=== PATIENT | female | born 1945 | race Caucasian/White ===

== ENCOUNTER 2018-07-20 09:14 | Emergency (ER) | payer OTHER, SELFPAY ==
[2018-07-20 09:31] VITALS: BP 120/64; PULSE 98; RESP 18; TEMP 36.6; O2SAT 99; BMI 30.2
--- NOTE | 2018-07-20 10:41 | ED.SKABFB ---
HPI - Skin/Abscess/Foreign Bdy General Chief complaint: Skin/Abscess/Foreign Body Stated complaint: right toe pain swelling/ blistered Time Seen by Provider: 07/20/18 09:41 Source: patient Mode of arrival: ambulatory Limitations: no limitations History of Present Illness HPI narrative: Patient states she developed a blister on the dorsal surface of her right great toe about 4 days ago. She states that it has gotten progressively bigger, and that yesterday, she began to notice some bleeding into the blister. She also noticed that she had redness spreading to her foot and leg from the blister, so she went and saw her primary doctor, who put her on Keflex. Patient states she gets bad headaches with sulfa antibiotics, so her doctor told her this was the next best choice for MRSA. The patient states the redness has not spread since yesterday, that the blister is bigger and has turned a dark purple. Patient states she does not feel ?sick? and that other than the 5th foot and lower leg, she is feeling fine. Patient denies being a diabetic. She denies any trauma to the toe that she can think of that would have caused the blister deformed. She has not had any fevers. No other complaints at this time. MD complaint: other (Blister and infection) Onset (ago): day(s) Tetanus up to date: yes Location: R foot Severity: moderate Severity scale (1-10): 6 Quality: burning and stabbing Pain Consistency: constant Relieving factors: none Exacerbating factors: movement Context: other (See above) Associated symptoms: denies other symptoms Treatments prior to arrival: none Related Data Home Medications Medication Instructions Recorded Confirmed Fish Oil 1 cap PO DAILY 07/20/18 07/20/18 Mature Vit 1 tab PO DAILY 07/20/18 07/20/18 Vitamin B-6 1 tab PO DAILY 07/20/18 07/20/18 Vitamin D3 1 cap PO DAILY 07/20/18 07/20/18 amitriptyline 2 tab PO BEDTIME 07/20/18 07/20/18 aspirin 81 mg PO DAILY 07/20/18 07/20/18 calcium carbonate [Calcium 500] 1 tab PO DAILY 07/20/18 07/20/18 calcium citrate 1 tab PO DAILY 07/20/18 07/20/18 cephalexin 2 cap PO BID 07/20/18 07/20/18 gabapentin 1 cap PO BEDTIME 07/20/18 07/20/18 uloaccdy-twwfi-xrneb-CF borate 1 tab PO BID 07/20/18 07/20/18 [[email or web address]] glucosamine-chondroitin 1 tab PO DAILY 07/20/18 07/20/18 lisinopril-hydrochlorothiazide 1 tab PO DAILY 07/20/18 07/20/18 magnesium 1 tab PO DAILY 07/20/18 07/20/18 meclizine 1 - 2 tab PO PRN PRN 07/20/18 07/20/18 methylcellulose (laxative) 1 tab PO DAILY 07/20/18 07/20/18 [Citrucel] naproxen 1 tab PO BID 07/20/18 07/20/18 ondansetron 1 - 2 tab PO PRN PRN 07/20/18 07/20/18 simvastatin 1 tab PO BEDTIME 07/20/18 07/20/18 zinc 1 cap PO DAILY 07/20/18 07/20/18 Previous Rx's Medication Instructions Recorded siqxvxng-myhbvaxsfYt-tkexcckjI 1 applictn TOP BID #28 gram 07/20/18 [Neosporin (djg-wgg-gepcz) 3.5 mg-400 unit-5,000 unit/gram top ointment] Allergies Allergy/AdvReac Type Severity Reaction Status Date / Time amoxicillin Allergy Severe Rash Verified 07/20/18 10:51 ciprofloxacin [From Cipro] Allergy Severe Rash Verified 07/20/18 10:51 Sulfa (Sulfonamide AdvReac Severe Headache Verified 07/20/18 10:51 Antibiotics) Review of Systems Review of Systems All systems reviewed & are unremarkable except as noted in HPI and below Constitutional Denies chills, Denies fever(s), Denies lethargy and Denies weakness Eyes Denies change in vision, Denies eye discharge, Denies irritation and Denies loss of vision ENT Ears, Nose, Mouth, and Throat: Denies change in voice, Denies neck pain and Denies sore throat Cardiovascular Denies chest pain, Denies irregular heart rhythm, Denies lightheadedness, Denies palpitations, Denies dyspnea, Denies dyspnea on exertion and Denies orthopnea Respiratory Denies cough, Denies dyspnea, Denies dyspnea on exertion and Denies wheezing Gastrointestinal Gastrointestinal: Denies abdominal pain, Denies change in bowel habits, Denies diarrhea, Denies nausea and Denies vomiting Genitourinary Denies hematuria, Denies flank pain, Denies urinary incontinence and Denies urinary urgency Musculoskeletal Denies neck pain Integumentary/Breasts Denies pruritus, Denies erythema, Denies rash and Denies wounds Neurologic Denies confusion, Denies loss of vision and Denies weakness Psychiatric Denies anxiety, Denies confusion, Denies depression, Denies homicidal ideation and Denies suicidal ideation Endocrine Denies palpitations Hematologic/Lymphatic Denies easy bruising Allergic/Immunologic Denies wheezing [facility] Medical History Healthy adult (Acute) Surgical History No pertinent past surgical history (Acute) Social History Smoking Status: Never smoker Exam Initial Vital Signs Initial Vital Signs: Vital Signs Temperature 97.9 F 07/20/18 09:31 Pulse Rate 98 H 07/20/18 09:31 Respiratory Rate 18 07/20/18 09:31 Blood Pressure 120/64 07/20/18 09:31 Pulse Oximetry 99 07/20/18 09:31 Const General: cooperative and well developed Nutritional Appearance: well nourished Orientation: alert, awake, oriented x3 and not confused [facility] Head: normocephalic and atraumatic Ears: external ears normal Nose: external nose normal and No nasal discharge Face and sinus: face symmetric and No dry mucous membranes Mouth: oral mucosae normal and moist mucous membranes Eyes General: appearance normal, both eyes and all related structures Eyelids: eyelids normal Conjunctivae: conjunctivae normal Sclera: sclerae normal Pupils: PERRL EOM: EOM intact bilaterally Neck Neck: normal visual inspection, trachea midline, No lymphadenopathy, No midline deformity and No JVD Lymphatic: No lymphedema Chest Chest: normal inspection of the chest Resp Effort & Inspection: normal respiratory effort, able to speak in complete sentences, no respiratory distress and no use of accessory muscles Auscultation: clear to auscultation bilaterally, no rales, no rhonchi and no wheezes Cardio Rate: regular rate Rhythm: regular rhythm Heart Sounds: no click, no gallops, no murmurs and no rubs Pulses: normal peripheral pulses Back/Spine/Pelvis Back: No CVA tenderness Cervical Spine: cervical ROM normal and No pain with cervical ROM Thoracic/Lumbar Spine: thoracic and lumbar spine normal to inspection Skin Other: Patient has a 7 cm by 4 cm purplish bulla on the dorsum medial surface of her right great toe. Patient has associated erythema and moderate edema of the foot and great toe, as well. Erythema spreads superiorly to the anterolateral surface of the lower leg, about alf up. Skin marking is noted, which patient states was placed by her primary care physician yesterday; the erythema does extend beyond this. No fluctuance other than is associated with the blisters self. Neuro General: alert, oriented x3, gait normal and no focal motor deficits Speech: speech normal Extrem General: full ROM, no clubbing, cyanosis or edema, no pedal edema and no calf tenderness Psych Appearance: well kempt Mental Status: mental status grossly normal Attitude: cooperative Thought Content: normal and suicidality Judgment: judgment good Procedures Abscess I/D Site: foot Side (if applicable): right Amount of fluid expressed (mL): 10 Irrigation: Yes Packing used?: none Course Course Narrative: The patient had only been on the Keflex for 1 day, and the erythema had ceased to spread. Although Keflex is not totally ideal coverage of MRSA, given that this patient does not tolerate sulfa well, I felt that Keflex would be reasonable to continue his antibiotics since the patient is very early in her course. I did feel that the bolus should be debrided, as I was concerned that it was acting as a reservoir for infection. Patient agreed to this. The below was incised with scissors after sterile preparation, and a wound culture was taken of the fluid. Skin was then trimmed along the edges and fully removed, and did reveal a copious amount serosanguineous and purulent fluid was. Wound was cleansed and then soaked in a saline Betadine solution. Patient was then dressed with Silvadene and gauze. She has a podiatry appointment tomorrow, and I have discussed with her that I feel that the Keflex may be continued until then, and Podiatry can decide whether this is still a good force to pursue. Patient was noted to have some pus expressible subungually, as the base of her nail was exposed in entirety. I did apply pressure and express the purulent matter in till no further fluid was expressible. We have discussed that Podiatry may decide to remove the patient's nail entirely; however, I do not believe this needs to be done read at this time. Vital Signs - 8 hr 07/20/18 09:31 Temperature 97.9 F Pulse Rate 98 H Respiratory Rate 18 Blood Pressure 120/64 Pulse Oximetry 99 MDM - Skin/Abscess/Foreign Bdy Medical Records Attestation: I reviewed the patient's medical records. Discharge Plan Departure Patient Disposition: Home Clinical Impression: Abscess of skin or subcutaneous tissue, Cellulitis Discharge Date/Time: 07/20/18 12:33 Interventions: ED Discharge Assessment Last Done: 07/20/18 12:33 Instructions: DI for Cellulitis -- Adult, DI for Debridement of a Wound, Infection, or Burn Activity Restrictions/Additional Instructions: Please dress your wound daily with the Neosporin (Rx sent to your pharmacy on record, [facility]) and gauze. Continue your plans to follow up with Podiatry tomorrow. Please continue the Keflex until all the pills are gone. If your redness begins to spread beyond the marked margins, please have the area re-evaluated medically. Prescriptions: New cskbyzvv-hdfluyzafWp-hycdldxxH [Neosporin (gbx-wcy-zawwg)] 3.5mg-400 unit- 5,000 unit/gram ointment 1 applictn TOP BID Qty: 28 RF: 0 No Action lisinopril-hydrochlorothiazide 20-12.5 mg tablet 1 tab PO DAILY RF: 0 simvastatin 40 mg tablet 1 tab PO BEDTIME RF: 0 amitriptyline 25 mg tablet 2 tab PO BEDTIME RF: 0 cephalexin 500 mg capsule 2 cap PO BID RF: 0 gabapentin 300 mg capsule 1 cap PO BEDTIME RF: 0 naproxen 500 mg tablet 1 tab PO BID RF: 0 aspirin 81 mg Tablet,Delayed Release (Dr/Ec) 81 mg PO DAILY RF: 0 calcium carbonate [Calcium 500] 500 mg calcium (1,250 mg) Tablet 1 tab PO DAILY RF: 0 meclizine 25 mg Tablet 1 - 2 tab PO PRN PRN (Reason: Dizziness) RF: 0 methylcellulose (laxative) [Citrucel] 500 mg Tablet 1 tab PO DAILY RF: 0 ondansetron 4 mg Tablet,Disintegrating 1 - 2 tab PO PRN PRN (Reason: Nausea) RF: 0 dsbvlvtb-geogg-tqndd-CF borate [[employer]] 750 mg-100 mg- 1.65 mg-108 mg Tablet 1 tab PO BID RF: 0 glucosamine-chondroitin 500-200 mg Tablet Extended Release 1 tab PO DAILY RF: 0 Fish Oil 1 cap PO DAILY RF: 0 Mature Vit 1 tab PO DAILY RF: 0 Vitamin B-6 10 mg tablet 1 tab PO DAILY RF: 0 Vitamin D3 1 cap PO DAILY RF: 0 calcium citrate 1 tab PO DAILY RF: 0 magnesium 80 mg tablet 1 tab PO DAILY RF: 0 zinc 10 mg capsule 1 cap PO DAILY RF: 0
[2018-07-20 11:00] VITALS: BP 130/68; PULSE 76; RESP 15; O2SAT 100
--- NOTE | 2018-07-20 11:28 | ED_ITS ---
HPI - Skin/Abscess/Foreign Bdy General Chief complaint: Skin/Abscess/Foreign Body Stated complaint: right toe pain swelling/ blistered Time Seen by Provider: 07/20/18 09:41 Source: patient Mode of arrival: ambulatory Limitations: no limitations History of Present Illness HPI narrative: Patient states she developed a blister on the dorsal surface of her right great toe about 4 days ago. She states that it has gotten progressively bigger, and that yesterday, she began to notice some bleeding into the blister. She also noticed that she had redness spreading to her foot and leg from the blister, so she went and saw her primary doctor, who put her on Keflex. Patient states she gets bad headaches with sulfa antibiotics, so her doctor told her this was the next best choice for MRSA. The patient states the redness has not spread since yesterday, that the blister is bigger and has turned a dark purple. Patient states she does not feel ?sick? and that other than the 5th foot and lower leg, she is feeling fine. Patient denies being a diabetic. She denies any trauma to the toe that she can think of that would have caused the blister deformed. She has not had any fevers. No other complaints at this time. MD complaint: other (Blister and infection) Onset (ago): day(s) Tetanus up to date: yes Location: R foot Severity: moderate Severity scale (1-10): 6 Quality: burning and stabbing Pain Consistency: constant Relieving factors: none Exacerbating factors: movement Context: other (See above) Associated symptoms: denies other symptoms Treatments prior to arrival: none Related Data Home Medications Medication Instructions Recorded Confirmed Fish Oil 1 cap PO DAILY 07/20/18 07/20/18 Mature Vit 1 tab PO DAILY 07/20/18 07/20/18 Vitamin B-6 1 tab PO DAILY 07/20/18 07/20/18 Vitamin D3 1 cap PO DAILY 07/20/18 07/20/18 amitriptyline 2 tab PO BEDTIME 07/20/18 07/20/18 aspirin 81 mg PO DAILY 07/20/18 07/20/18 calcium carbonate [Calcium 500] 1 tab PO DAILY 07/20/18 07/20/18 calcium citrate 1 tab PO DAILY 07/20/18 07/20/18 cephalexin 2 cap PO BID 07/20/18 07/20/18 gabapentin 1 cap PO BEDTIME 07/20/18 07/20/18 uhmhxysy-kciwv-iriyf-CF borate 1 tab PO BID 07/20/18 07/20/18 [Move Free [employer]] glucosamine-chondroitin 1 tab PO DAILY 07/20/18 07/20/18 lisinopril-hydrochlorothiazide 1 tab PO DAILY 07/20/18 07/20/18 magnesium 1 tab PO DAILY 07/20/18 07/20/18 meclizine 1 - 2 tab PO PRN PRN 07/20/18 07/20/18 methylcellulose (laxative) 1 tab PO DAILY 07/20/18 07/20/18 [Citrucel] naproxen 1 tab PO BID 07/20/18 07/20/18 ondansetron 1 - 2 tab PO PRN PRN 07/20/18 07/20/18 simvastatin 1 tab PO BEDTIME 07/20/18 07/20/18 zinc 1 cap PO DAILY 07/20/18 07/20/18 Previous Rx's Medication Instructions Recorded qrkhxcau-ogpgbjcoiXs-wwffjafmP 1 applictn TOP BID #28 gram 07/20/18 [Neosporin (lhb-qcs-eoyjc) 3.5 mg-400 unit-5,000 unit/gram top ointment] Allergies Allergy/AdvReac Type Severity Reaction Status Date / Time amoxicillin Allergy Severe Rash Verified 07/20/18 10:51 ciprofloxacin [From Cipro] Allergy Severe Rash Verified 07/20/18 10:51 Sulfa (Sulfonamide AdvReac Severe Headache Verified 07/20/18 10:51 Antibiotics) Review of Systems Review of Systems All systems reviewed & are unremarkable except as noted in HPI and below Constitutional Denies chills, Denies fever(s), Denies lethargy and Denies weakness Eyes Denies change in vision, Denies eye discharge, Denies irritation and Denies loss of vision ENT Ears, Nose, Mouth, and Throat: Denies change in voice, Denies neck pain and Denies sore throat Cardiovascular Denies chest pain, Denies irregular heart rhythm, Denies lightheadedness, Denies palpitations, Denies dyspnea, Denies dyspnea on exertion and Denies orthopnea Respiratory Denies cough, Denies dyspnea, Denies dyspnea on exertion and Denies wheezing Gastrointestinal Gastrointestinal: Denies abdominal pain, Denies change in bowel habits, Denies diarrhea, Denies nausea and Denies vomiting Genitourinary Denies hematuria, Denies flank pain, Denies urinary incontinence and Denies urinary urgency Musculoskeletal Denies neck pain Integumentary/Breasts Denies pruritus, Denies erythema, Denies rash and Denies wounds Neurologic Denies confusion, Denies loss of vision and Denies weakness Psychiatric Denies anxiety, Denies confusion, Denies depression, Denies homicidal ideation and Denies suicidal ideation Endocrine Denies palpitations Hematologic/Lymphatic Denies easy bruising Allergic/Immunologic Denies wheezing [facility] Medical History Healthy adult (Acute) Surgical History No pertinent past surgical history (Acute) Social History Smoking Status: Never smoker Exam Initial Vital Signs Initial Vital Signs: Vital Signs Temperature 97.9 F 07/20/18 09:31 Pulse Rate 98 H 07/20/18 09:31 Respiratory Rate 18 07/20/18 09:31 Blood Pressure 120/64 07/20/18 09:31 Pulse Oximetry 99 07/20/18 09:31 Const General: cooperative and well developed Nutritional Appearance: well nourished Orientation: alert, awake, oriented x3 and not confused [facility] Head: normocephalic and atraumatic Ears: external ears normal Nose: external nose normal and No nasal discharge Face and sinus: face symmetric and No dry mucous membranes Mouth: oral mucosae normal and moist mucous membranes Eyes General: appearance normal, both eyes and all related structures Eyelids: eyelids normal Conjunctivae: conjunctivae normal Sclera: sclerae normal Pupils: PERRL EOM: EOM intact bilaterally Neck Neck: normal visual inspection, trachea midline, No lymphadenopathy, No midline deformity and No JVD Lymphatic: No lymphedema Chest Chest: normal inspection of the chest Resp Effort & Inspection: normal respiratory effort, able to speak in complete sentences, no respiratory distress and no use of accessory muscles Auscultation: clear to auscultation bilaterally, no rales, no rhonchi and no wheezes Cardio Rate: regular rate Rhythm: regular rhythm Heart Sounds: no click, no gallops, no murmurs and no rubs Pulses: normal peripheral pulses Back/Spine/Pelvis Back: No CVA tenderness Cervical Spine: cervical ROM normal and No pain with cervical ROM Thoracic/Lumbar Spine: thoracic and lumbar spine normal to inspection Skin Other: Patient has a 7 cm by 4 cm purplish bulla on the dorsum medial surface of her right great toe. Patient has associated erythema and moderate edema of the foot and great toe, as well. Erythema spreads superiorly to the anterolateral surface of the lower leg, about correction up. Skin marking is noted , which patient states was placed by her primary care physician yesterday; the erythema does extend beyond this. No fluctuance other than is associated with the blisters self. Neuro General: alert, oriented x3, gait normal and no focal motor deficits Speech: speech normal Extrem General: full ROM, no clubbing, cyanosis or edema, no pedal edema and no calf tenderness Psych Appearance: well kempt Mental Status: mental status grossly normal Attitude: cooperative Thought Content: normal and suicidality Judgment: judgment good Procedures Abscess I/D Site: foot Side (if applicable): right Amount of fluid expressed (mL): 10 Irrigation: Yes Packing used?: none Course Course Narrative: The patient had only been on the Keflex for 1 day, and the erythema had ceased to spread. Although Keflex is not totally ideal coverage of MRSA, given that this patient does not tolerate sulfa well, I felt that Keflex would be reasonable to continue his antibiotics since the patient is very early in her course. I did feel that the bolus should be debrided, as I was concerned that it was acting as a reservoir for infection. Patient agreed to this. The below was incised with scissors after sterile preparation, and a wound culture was taken of the fluid. Skin was then trimmed along the edges and fully removed, and did reveal a copious amount serosanguineous and purulent fluid was. Wound was cleansed and then soaked in a saline Betadine solution. Patient was then dressed with Silvadene and gauze. She has a podiatry appointment tomorrow, and I have discussed with her that I feel that the Keflex may be continued until then, and Podiatry can decide whether this is still a good force to pursue. Patient was noted to have some pus expressible subungually, as the base of her nail was exposed in entirety. I did apply pressure and express the purulent matter in till no further fluid was expressible. We have discussed that Podiatry may decide to remove the patient' s nail entirely; however, I do not believe this needs to be done read at this time. Vital Signs - 8 hr 07/20/18 09:31 Temperature 97.9 F Pulse Rate 98 H Respiratory Rate 18 Blood Pressure 120/64 Pulse Oximetry 99 MDM - Skin/Abscess/Foreign Bdy Medical Records Attestation: I reviewed the patient's medical records. Discharge Plan Departure Patient Disposition: Home Clinical Impression: Abscess of skin or subcutaneous tissue, Cellulitis Discharge Date/Time: 07/20/18 12:33 Interventions: ED Discharge Assessment Last Done: 07/20/18 12:33 Instructions: DI for Cellulitis -- Adult, DI for Debridement of a Wound, Infection, or Burn Activity Restrictions/Additional Instructions: Please dress your wound daily with the Neosporin (Rx sent to your pharmacy on record, [facility]) and gauze. Continue your plans to follow up with Podiatry tomorrow. Please continue the Keflex until all the pills are gone. If your redness begins to spread beyond the marked margins, please have the area re- evaluated medically. Prescriptions: New khjyoope-aovqutcpyOw-qgocomnsY [Neosporin (guo-roc-dxqpx)] 3.5mg-400 unit- 5, 000 unit/gram ointment 1 applictn TOP BID Qty: 28 RF: 0 No Action lisinopril-hydrochlorothiazide 20-12.5 mg tablet 1 tab PO DAILY RF: 0 simvastatin 40 mg tablet 1 tab PO BEDTIME RF: 0 amitriptyline 25 mg tablet 2 tab PO BEDTIME RF: 0 cephalexin 500 mg capsule 2 cap PO BID RF: 0 gabapentin 300 mg capsule 1 cap PO BEDTIME RF: 0 naproxen 500 mg tablet 1 tab PO BID RF: 0 aspirin 81 mg Tablet,Delayed Release (Dr/Ec) 81 mg PO DAILY RF: 0 calcium carbonate [Calcium 500] 500 mg calcium (1,250 mg) Tablet 1 tab PO DAILY RF: 0 meclizine 25 mg Tablet 1 - 2 tab PO PRN PRN (Reason: Dizziness) RF: 0 methylcellulose (laxative) [Citrucel] 500 mg Tablet 1 tab PO DAILY RF: 0 ondansetron 4 mg Tablet,Disintegrating 1 - 2 tab PO PRN PRN (Reason: Nausea) RF: 0 eohvfhcb-kzene-oqoxa-CF borate [[employer]] 750 mg-100 mg- 1.65 mg -108 mg Tablet 1 tab PO BID RF: 0 glucosamine-chondroitin 500-200 mg Tablet Extended Release 1 tab PO DAILY RF: 0 Fish Oil 1 cap PO DAILY RF: 0 Mature Vit 1 tab PO DAILY RF: 0 Vitamin B-6 10 mg tablet 1 tab PO DAILY RF: 0 Vitamin D3 1 cap PO DAILY RF: 0 calcium citrate 1 tab PO DAILY RF: 0 magnesium 80 mg tablet 1 tab PO DAILY RF: 0 zinc 10 mg capsule 1 cap PO DAILY RF: 0
[2018-07-20 11:30] VITALS: BP 130/68; PULSE 75; RESP 14; O2SAT 98
[2018-07-20 12:02] VITALS: BP 115/57; PULSE 74; RESP 15; O2SAT 99
== END 2018-07-20 12:33 | disposition home or self-care (01) ==
PROVIDERS: Emergency Provider Emergency Medicine
DX: L02.611 Cutaneous abscess of right foot (principal); L03.031 Cellulitis of right toe
CPT/HCPCS: 10060; 87070; 87077; 87147; 87186; 87205; 99283

== ENCOUNTER → 2018-09-09 11:28 | Outpatient (CLI) | payer OTHER, SELFPAY ==
--- NOTE | 2018-09-09 | DI.MG.S_ITS ---
BILATERAL DIGITAL SCREENING MAMMOGRAM 3D/2D WITH CAD: 09/09/2018 CLINICAL: Routine screening. Family history of breast cancer. Comparison is made to exams dated: 06/24/2016 mammogram, 01/04/2014 mammogram, and 01/18/2014 mammogram - [facility]. There are scattered fibroglandular elements in both breasts. Current study was also evaluated with a Computer Aided Detection (CAD) system. No significant masses, calcifications, or other findings are seen in either breast. There has been no significant interval change. IMPRESSION: NEGATIVE There is no mammographic evidence of malignancy. A 1 year screening mammogram is recommended. This exam was interpreted at Station ID: [id number]. NOTE: For mammograms, a report in lay terms will be sent to the patient. Approximately 15% of breast malignancies will not be visualized mammographically. In the management of a palpable breast mass, a negative mammogram must not discourage biopsy of a clinically suspicious lesion. Electronically Signed By: Dixie العلي/evie:09/09/2018 12:58:34 letter sent: Normal Exam ACR BI-RADS Category 1: Negative [id number]
== END ==
PROVIDERS: PCP Family Medicine; Visit Provider Family Medicine
DX: Z12.31 Encounter for screening mammogram for malignant neoplasm of breast (principal)
CPT/HCPCS: 77063; 77067

== ENCOUNTER → 2018-11-04 10:19 | Outpatient (CLI) | payer OTHER, SELFPAY ==
--- NOTE | 2018-11-04 | DI.RAD.S_ITS ---
PROCEDURE: XR FOOT LT MIN 3V INDICATIONS: Pain TECHNIQUE: 3 views of the foot were acquired. COMPARISON: [facility], CR, XR FOOT RT MIN 3V, 11/04/2018, 10:22. FINDINGS: Bones: No fractures or dislocations. No suspicious bony lesions. Soft tissues: No tibiotalar joint effusion. Achilles tendon appears normal. IMPRESSION: Source of pain is not seen. Dictated by: Kashmir Epstein M.D. on 11/04/2018 at 12:57 Approved by: Kashmir Epstein M.D. on 11/04/2018 at 12:58
--- NOTE | 2018-11-04 10:21 | DI.RAD.S_ITS ---
PROCEDURE: XR FOOT RT MIN 3V INDICATIONS: Pain. TECHNIQUE: 3 views of the foot were acquired. COMPARISON: None. FINDINGS: Bones: No fractures or dislocations. No suspicious bony lesions. Soft tissues: No tibiotalar joint effusion. Achilles tendon appears normal. IMPRESSION: No trauma found. Source of pain is not seen. Dictated by: Kashmir Epstein M.D. on 11/04/2018 at 12:56 Approved by: Kashmir Epstein M.D. on 11/04/2018 at 12:57
== END ==
PROVIDERS: PCP Family Medicine; Visit Provider Physical Medicine & Rehabilitation
DX: M79.671 Pain in right foot (principal); M79.672 Pain in left foot
CPT/HCPCS: 73630

== ENCOUNTER → 2020-03-18 13:15 | Outpatient (CLI) | payer OTHER, SELFPAY ==
--- NOTE | 2020-03-18 14:05 | DI.RAD.S_ITS ---
PROCEDURE: XR CERVICAL SPINE 4V OR 5V INDICATIONS: neck pain TECHNIQUE: 4 views of the cervical spine acquired. COMPARISON: None. FINDINGS: Bones: No fractures or dislocations to the T1 level. Straightening of the normal lordotic curvature. Severe narrowing of the C5-C6 disc space. Moderate narrowing of the C6-C7 and C7-T1 disc space. Chronic ossicle projects adjacent to the C7 spinous process. Lateral curvature of the spine also noted partially visualized. On the right, there is mild bony foraminal narrowing at C3-C4. On the left, moderate bony foraminal narrowing seen at C5-C6 C6-C7 and C7-T1. Soft tissues: No prevertebral soft tissue swelling. IMPRESSION: Cervical spondylosis most pronounced at C5-C6, C6-C7 and C7-T1 Facet arthropathy Bilateral bony foraminal stenoses as above Dictated by: Naman Holguin M.D. on 03/18/2020 at 15:31 Approved by: Naman Holguin M.D. on 03/18/2020 at 15:34
== END ==
PROVIDERS: PCP Family Medicine; Referring Provider Physical Medicine & Rehabilitation; Visit Provider Physical Medicine & Rehabilitation
DX: M54.2 Cervicalgia (principal); M47.812 Spondylosis without myelopathy or radiculopathy, cervical region; M47.813 Spondylosis without myelopathy or radiculopathy, cervicothoracic region; M48.02 Spinal stenosis, cervical region
CPT/HCPCS: 72050

== ENCOUNTER → 2020-04-27 11:16 | Outpatient (CLI) | payer OTHER, SELFPAY ==
[2020-04-29 11:06] LABS: COVID19 Sendout Not Detected (Not Detect)
== END ==
PROVIDERS: PCP Family Medicine; Visit Provider Physician Assistant
DX: Z01.812 Encounter for preprocedural laboratory examination (principal)
CPT/HCPCS: 87635

== ENCOUNTER 2020-04-30 09:04 | Outpatient (CLI) | payer OTHER, SELFPAY ==
[2020-04-30] VITALS (8 sets, daily range): BP systolic 123–143; BP diastolic 74–90; PULSE 76–80; RESP 15–74; TEMP 36.2; O2SAT 94–99
--- NOTE | 2020-04-30 09:05 | DI.RAD.S_ITS ---
PROCEDURE: PAIN C/T INTERLAMINAR INJECT INDICATIONS: CERVICAL RADICULOPATHY COMPARISON: None. FINDINGS: Fluoroscopic spot filming was performed to verify placement of spinal needles at the C6-C7 level(s), as labeled on the films. Appropriate location(s) of the needle tip(s) was confirmed by injection of iodinated contrast. IMPRESSION: Fluoroscopy guidance for pain management. Dictated by: Derik Burch M.D. on 04/30/2020 at 11:19 Approved by: Derik Burch M.D. on 04/30/2020 at 11:20
[2020-04-30] MEDS: fentaNYL 100 MCG/2 ML INJ 50 MCG IV (10:03)
[2020-04-30] MEDS: MIDAZOLAM 5 MG/5 ML VIAL IV (10:03)
[2020-04-30] MEDS: DEXAMETHASONE 10 MG/ML VIAL 20 MG INJ (10:07)
[2020-04-30] MEDS: BUPIVACAINE 0.25% (PF) VIAL 2 ML INJ (10:07)
[2020-04-30] MEDS: IOPAMIDOL 15 ML VIAL 3 ML INJ (10:07)
--- NOTE | 2020-04-30 10:25 | P.PCN_ITS ---
Date/Time/Diagnoses Date of procedure: 04/30/20 Time of procedure: 10:25 Pre-procedure diagnosis: 1. CERVICAL STENOSIS, 2. CERVICAL HNP WITH UPPER EXTREMITY RADICULAR FEATURES, Post-procedure diagnosis: same Procedure Notes Procedure: 1. FLUORSCOPICALLY GUIDED CONTRAST CONTROLLED INTERLAMINAR EPIDURAL STEROID INJECTION - C6/7 TL EUGENIA Indications: Jens is referred by Dr. De Guzman for treatment of Cervical HNP with Upper Extremity Paresthesias. Physician: Gregory Palmer Total Fluoroscopy time (seconds): 12 Total sedation minutes: 24 Complications: none Procedure in detail & Post-procedure care: FINDINGS Cervical Stenosis due to disc deterioration and nerve root irritation and nerve root irritation DESCRIPTION OF PROCEDURE Fluoroscopically guided, contrast-controlled C6/7 translaminar epidural steroid injection with conscious sedation. Following review of allergy and review of potential side effects and complications, including, but not necessarily limited to, infection, allergic reaction, local tissue breakdown, temporary as well as permanent nerve injury, stroke, paralysis, and possible , the patient indicated that patient understood and agreed to proceed. An informed consent document was signed by the patient, witnessed by a nurse, and placed in the patient's chart. Additionally, other treatment options including modalities, medications, and physical therapy were reviewed with the patient. After review of previous anaesthesic history and IV conscious sedation the patient was deemed safe to proceed with today?s procedure with IV conscious sed ation as ASA class II designation. Safety time-out was performed to confirm patient ID, procedure to be performed and site of procedure. IV sedation was accomplished with a combination of 2mg of Versed and 50mcg of Fentanyl administered by the RN after DO order, titrated to patient comfort during the course of the procedure while the patient remained responsive to all verbal commands. In the prone position, following sterile prep and drape of the cervical region, the C6/7 translaminar space was identified fluoroscopically. The skin was anesthetized via a 25-gauge 1.5-inch needle with 1% lidocaine solution. At this point, a 25-gauge, 2.5-inch short bevel spinal needle was atraumatically introduced and advanced under fluoroscopic guidance into epidural space at the C6/7 translaminar space. Depth was confirmed on lateral view. Radiological data, including multiple fluoroscopic views of the cervical spine, reveal a spinal needle at the C6/7 translaminar space. Lateral views then show placement of the needle in the epidural space. Subsequent views show contrast material flowing superiorly and inferiorly in the epidural space. DSA fluoroscopy with live contrast injection, once again, confirmed no vascular or intrathecal uptake. At this point, using loss of resistance technique with saline and air, the epidural space was entered. Following negative aspiration, injection of approximately 1.5cc of Isovue-200 with live fluoroscopy in the AP view confirmed epidural flow in the epidural space without vascular or intrathecal uptake observed. Subsequently, a test dose of 1cc of 0.25% marcaine solution was injected and patient was observed for two minutes without signs or symptoms of complications, including abdominal pain, shortness of breath, bilateral upper or lower extremity weakness, nausea and vomiting, prior to steroid injection. At this point, 3cc or 30mg of dexamethasone was then injected without incident. The patient tolerated the procedure well without signs or symptoms of complications prior to being transferred to the recovery area for further monitoring, The patient was then transferred to the recovery area where they were observed for an appropriate period of time after the injection. The patient reported a VAS score of 6 prior to the procedure and a post-procedure VAS of 0. POST OP INSTRUCTIONS The patient was provided a Pain Log to continue to record their response to the target-specific procedure prior to follow-up visit with the referring provider. Additionally, specific post-injection care instructions and a contact number to our office were provided if concerns arise regarding possible complications associated with the procedure are suspected.
--- NOTE | 2020-04-30 15:20 | PC.NURSE ---
VSS, reviewed green pain log and post injection instructions prior to injection, Has no questions or concerns on d/c.
--- NOTE | 2020-04-30 15:42 | PC.NURSE ---
Pt tolerated procedure well. Vitals stable upon transfer to post procedure room with report given to FLAQUITO Angelo. IV Fentanyl and Versed given by Liliane Coy RN. All other meds administered by Dr. Palmer
== END 2020-04-30 10:43 | disposition home or self-care (01) ==
LOC: RAD 09:04
PROVIDERS: PCP Family Medicine; Referring Provider Physical Medicine & Rehabilitation; Visit Provider Physical Medicine & Rehabilitation
DX: M48.02 Spinal stenosis, cervical region (principal); M50.123 Cervical disc disorder at C6-C7 level with radiculopathy
CPT/HCPCS: 62321; 99152; J1100; J2250; J3010

== ENCOUNTER 2020-07-25 08:44 | Outpatient (CLI) | payer OTHER, SELFPAY | END 2020-07-25 15:41 | disposition home or self-care (01) | LOC: PHYS 08:45 | PROVIDERS: PCP Family Medicine; Referring Provider Physical Medicine & Rehabilitation; Visit Provider Physical Medicine & Rehabilitation | DX: M54.12 Radiculopathy, cervical region (principal); G62.9 Polyneuropathy, unspecified | CPT/HCPCS: 95886; 95909 ==

== ENCOUNTER → 2020-08-24 13:32 | Outpatient (CLI) | payer OTHER, SELFPAY ==
--- NOTE | 2020-08-24 14:01 | DI.MG.S_ITS ---
Patient Name: BISHOP PRITCHARD date: 1945 Sex: F Attending Physician: Gege Indications: Date: 08/24/2020 13:49 At the request of: WADE ARECHIGA Procedure: MM screening mammo BI BILATERAL DIGITAL SCREENING MAMMOGRAM 3D/2D WITH CAD: 08/24/2020 CLINICAL: Routine screening. Family history of breast cancer. Comparison is made to exams dated: 09/09/2018 mammogram - [facility], 06/24/2016 mammogram, and 01/04/2014 mammogram - [facility]. There are scattered fibroglandular elements in both breasts. Current study was also evaluated with a Computer Aided Detection (CAD) system. No significant masses, calcifications, or other findings are seen in either breast. There has been no significant interval change. IMPRESSION: NEGATIVE There is no mammographic evidence of malignancy. A 1 year screening mammogram is recommended. This exam was interpreted at Station ID: [id number]. NOTE: For mammograms, a report in lay terms will be sent to the patient. Approximately 15% of breast malignancies will not be visualized mammographically. In the management of a palpable breast mass, a negative mammogram must not discourage biopsy of a clinically suspicious lesion. Electronically Signed By: Parag morelos/evie:08/26/2020 08:02:08 letter sent: Normal Exam ACR BI-RADS Category 1: Negative [id number]
== END ==
PROVIDERS: PCP Family Medicine; Referring Provider Family Medicine; Visit Provider Family Medicine
DX: Z12.31 Encounter for screening mammogram for malignant neoplasm of breast (principal)
CPT/HCPCS: 77063; 77067

== ENCOUNTER → 2020-08-27 10:41 | Outpatient (CLI) | payer OTHER, SELFPAY ==
--- NOTE | 2020-08-27 11:51 | DI.CT.S_ITS ---
PROCEDURE: CT CERVICAL SPINE WO CON INDICATIONS: Spinal stenosis, cervical region TECHNIQUE: Noncontrast 3 mm thick sections acquired from the skull base to the T4 level. Sagittal and coronal reformats were then constructed. For radiation dose reduction, the following was used: automated exposure control, adjustment of mA and/or kV according to patient size. COMPARISON: [facility], XA, PAIN C/T INTERLAMINAR INJECT, 04/30/2020, 9:07. [facility], CR, XR CERVICAL SPINE 4V OR 5V, 03/18/2020, 13:57. [facility], MR, MR CERVICAL SPINE WITHOUT CONTRAST, 09/07/2019, 16:00. FINDINGS: Image quality: Excellent. Bones: No fractures or dislocations. Visualized superior ribs are intact. There is reversal of the normal cervical lordosis, with the apex seen at the C5 level. There is minimal retrolisthesis seen at C5-C6. On coronal images, levoconvex upper thoracic scoliosis can be seen. This Mild to moderate disc space narrowing is seen at C4-C5, with moderate to severe disc space narrowing at C5-C6, C6-C7, and C7-T1. Endplate irregularity and sclerosis are seen, which are worst at C5-C6. Posteriorly directed endplate osteophytes are seen, which are worst at C5-C6 and C6-C7. Focal degenerative change can also be seen involving the C1-C2 interface anteriorly. At C5-C6 there is moderate central canal narrowing and at least moderate bilateral neural foraminal narrowing. At C6-C7, there is at least moderate central canal narrowing, with at least moderate bilateral neural foraminal narrowing. Soft tissues: Prevertebral soft tissues are normal in thickness. No paravertebral hematomas. No apical pneumothoraces. IMPRESSION: Cervical spine degenerative changes are seen, which are most prominent inferiorly. Reversal of the normal cervical lordosis is seen. This is commonly observed in patients with muscular spasm. Levoconvex upper thoracic scoliosis noted. Dictated by: Bobo Romero M.D. on 08/27/2020 at 12:47 Approved by: Bobo Romero M.D. on 08/27/2020 at 12:50
== END ==
PROVIDERS: PCP Family Medicine; Referring Provider Neurological Surgery; Visit Provider Neurological Surgery
DX: M48.02 Spinal stenosis, cervical region (principal); M47.812 Spondylosis without myelopathy or radiculopathy, cervical region; M41.84 Other forms of scoliosis, thoracic region
CPT/HCPCS: 72125

== ENCOUNTER → 2020-09-10 13:06 | Outpatient (CLI) | payer OTHER, SELFPAY ==
[2020-09-10 15:22] LABS: COVID19 -Nasal RAPID Negative (Negative)
== END ==
PROVIDERS: PCP Family Medicine; Visit Provider Physical Medicine & Rehabilitation
DX: Z01.812 Encounter for preprocedural laboratory examination (principal); Z20.828 Contact with and (suspected) exposure to other viral communicable diseases
CPT/HCPCS: 87635; C9803

== ENCOUNTER 2020-09-12 06:57 | Outpatient (CLI) | payer OTHER, SELFPAY ==
[2020-09-12] VITALS (9 sets, daily range): BP systolic 103–160; BP diastolic 65–86; PULSE 71–79; RESP 12–23; TEMP 36; O2SAT 93–98
--- NOTE | 2020-09-12 07:01 | DI.RAD.S_ITS ---
PROCEDURE: PAIN C/T INTERLAMINAR INJECT INDICATIONS: SPONDYLOSIS COMPARISON: [facility], , PAIN C/T INTERLAMINAR INJECT, 04/30/2020, 9:07. FINDINGS: Fluoroscopic spot filming was performed to verify placement of a spinal needle at the T1-T2 level, as labeled on the films. Appropriate location of the needle tip was confirmed by injection of iodinated contrast. IMPRESSION: Intraprocedural examination within normal limits. Dictated by: Bobo Romero M.D. on 09/12/2020 at 8:43 Approved by: Bobo Romero M.D. on 09/12/2020 at 8:43
[2020-09-12] MEDS: MIDAZOLAM 5 MG/5 ML VIAL IV (08:00)
[2020-09-12] MEDS: IOPAMIDOL 15 ML VIAL 3 ML INJ (08:09)
[2020-09-12] MEDS: BUPIVACAINE 0.25% (PF) VIAL 2 ML INJ (08:09)
[2020-09-12] MEDS: DEXAMETHASONE 10 MG/ML VIAL 30 MG INJ (08:09)
--- NOTE | 2020-09-12 08:13 | PM.PROC.IR.1 ---
Date/Time/Diagnoses Date of procedure: 09/12/20 Time of procedure: 08:13 Pre-procedure diagnosis: Thoracic stenosis with HNP Post-procedure diagnosis: same Procedure Notes Procedure: Fluoroscopic guided, contrast controlled T1/2 translaminar epidural steroid injection with conscious sedation. Indications: Jens is referred by Dr. De Guzman for treatment of thoracic DDD/DJD with radiculopathy Physician: Gregory Palmer Total Fluoroscopy time (seconds): 20 Total sedation minutes: 9 Complications: none Procedure in detail & Post-procedure care: DESCRIPTION OF PROCEDURE Fluoroscopic guided, contrast controlled T1/2 translaminar epidural steroid injection with conscious sedation. Following review of allergy review potential side effects and complications, including, but not necessarily limited to, infection, allergic reaction, local tissue breakdown, temporary as well as permanent nerve injury, stroke, paralysis and possible , the patient indicated that they understood and agreed to proceed. An informed consent document was signed by the patient, witnessed by the nurse, and placed in the patient's chart. Additionally other treatment options including modalities, medications and physical therapy were reviewed with the patient. After review of previous anaesthesic history and IV conscious sedation the patient was deemed safe to proceed with today's procedure with IV conscious sedation as ASA class II designation. Safety time-out was performed to confirm patient ID, procedure to be performed and site of procedure. IV sedation was accomplished with a combination of 3mg of Versed administered by the RN after DO order, titrated to patient comfort during the course of the procedure while the patient remained responsive to all verbal commands In the prone position, following sterile prep and drape of the thoracic region the T1/2 translaminar space was identified fluoroscopically. The skin was anesthetized via 25 gauge 1.5inch needle with 1% lidocaine solution. At this point a 22gauge epidural needle was atraumatically introduced and advanced under fluoroscopic guidance into the region of the T1/2 translaminar space depth was confirmed on lateral view. Radiographic data, including multiple fluoroscopic views of the thoracic spine, reveals spinal needle at the T1/2 translaminar space. Lateral views then showed the placement of the needle in the epidural space. Subsequent view show contrast material flowing superiorly and inferiorly in the epidural space. No vascular or intrathecal uptake is observed. At this point using loss of resistance technique with saline and the epidural space was entered. This was confirmed followed negative aspiration and injection of approximately 1.5cc of Isovue 200 showed excellent epidural flow without vascular or intrathecal uptake. At this point, 1 cc of 1% lidocaine solution was admitted as a test dose and the patient was observed for an appropriate period of time without signs or symptoms of complications, including abdominal pain, shortness of breath, bilateral upper and lower extremity weakness, nausea and vomiting, prior to steroid injection. Subsequently, 3cc or 30mg of dexamethasone was then injected without incident. The patient tolerated the procedure well without signs of complications and subsequently was transferred to the recovery room for further monitoring. The patient was then transferred to the recovery area with their observed for an appropriate time after the injection. Patient reported a VAS score of 7 prior to the procedure and post-procedure VAS of 2.
== END 2020-09-12 09:12 | disposition home or self-care (01) ==
LOC: RAD 06:58
PROVIDERS: PCP Family Medicine; Referring Provider Family Medicine; Visit Provider Physical Medicine & Rehabilitation
DX: M48.04 Spinal stenosis, thoracic region (principal); M51.14 Intervertebral disc disorders with radiculopathy, thoracic region; M47.24 Other spondylosis with radiculopathy, thoracic region
CPT/HCPCS: 62321; J1100; J2250; J3010

== ENCOUNTER → 2020-10-17 11:54 | Outpatient (CLI) | payer OTHER, SELFPAY ==
--- NOTE | 2020-10-17 11:56 | DI.RAD.S_ITS ---
PROCEDURE: XR SHOULDER RT MIN 2V INDICATIONS: Cuff tear TECHNIQUE: 3 views of the shoulder were acquired. COMPARISON: None. FINDINGS: Bones: No fractures or dislocations. Truncation of distal clavicle with widening of the acromioclavicular joint. There is superior migration of the humeral head. Severe glenohumeral joint space narrowing with periarticular osteophyte formation. No suspicious bony lesions. Visualized ribs appear intact. Soft tissues: No suspicious soft tissue calcifications. IMPRESSION: 1. Truncation of the distal clavicle with widening of the acromioclavicular joint likely postsurgical. Correlate clinically. 2. Superior migration of the humeral head consistent with rotator cuff pathology and/or muscle atrophy. If indicated MRI could be performed to further evaluate the soft tissues. 3. Severe glenohumeral joint degeneration. Dictated by: Andrey COTTON Interpreted: Kashmir Epstein MD on 10/17/2020 at 14:32 Approved by: Kashmir Epstein M.D. on 10/17/2020 at 16:17
--- NOTE | 2020-10-17 11:56 | DI.RAD.S_ITS ---
PROCEDURE: XR SHOULDER LT MIN 2V INDICATIONS: Cuff tear TECHNIQUE: 3 views of the shoulder were acquired. COMPARISON: None. FINDINGS: Bones: No fractures or dislocations. Truncation of the distal clavicle with widening of the acromioclavicular joint. Severe glenohumeral joint narrowing with periarticular osteophyte formation superior migration of the humeral head. No suspicious bony lesions. Visualized ribs appear intact. Soft tissues: Calcification involving the rotator cuff. IMPRESSION: Superior migration of the humeral head consistent with rotator cuff pathology and/or muscle atrophy. If indicated MRI could be performed to further evaluate the soft tissues. Truncation of the distal clavicle with widening of the acromioclavicular joint likely postsurgical. Correlate Clinically. Severe glenohumeral joint degeneration. Calcific tendinitis of the rotator cuff. Dictated by: Andrey LARA Interpreted: Kashmir Epstein MD on 10/17/2020 at 14:33 Approved by: Kashmir Epstein M.D. on 10/17/2020 at 16:18
== END ==
PROVIDERS: PCP Family Medicine; Referring Provider Physical Medicine & Rehabilitation; Visit Provider Physical Medicine & Rehabilitation
DX: M75.100 Unspecified rotator cuff tear or rupture of unspecified shoulder, not specified as traumatic; M19.011 Primary osteoarthritis, right shoulder; M19.012 Primary osteoarthritis, left shoulder; M75.32 Calcific tendinitis of left shoulder
CPT/HCPCS: 73030

== ENCOUNTER → 2020-11-08 15:37 | Outpatient (CLI) | payer MEDICARE, SELFPAY ==
[2020-11-08] MEDS: COVID-19 VACC #1, MRNA(MOD) 100 MCG/0.5 ML VIAL IM (15:46)
== END ==
PROVIDERS: PCP Family Medicine; Visit Provider Internal Medicine
DX: Z23 Encounter for immunization (principal)
CPT/HCPCS: 0011A; 91301

== ENCOUNTER → 2020-12-05 12:09 | Outpatient (CLI) | payer MEDICARE, SELFPAY ==
[2020-12-05] MEDS: COVID-19 VACC #2, MRNA(MOD) 100 MCG/0.5 ML VIAL IM (12:16)
== END ==
PROVIDERS: PCP Family Medicine; Visit Provider Internal Medicine
DX: Z23 Encounter for immunization (principal)
CPT/HCPCS: 0012A; 91301

== ENCOUNTER → 2021-01-04 08:27 | Outpatient (CLI) | payer OTHER, SELFPAY ==
--- NOTE | 2021-01-04 08:30 | DI.MRI.S_ITS ---
PROCEDURE: MR SHOULDER RT WO CON INDICATIONS: Pain in right shoulder TECHNIQUE: Noncontrast oblique coronal T2 fast spin echo with fat saturation, oblique sagittal T1 spin echo and T2 fast spin echo with fat saturation, axial T1 spin echo and T2 fast spin echo with fat saturation through the shoulder. COMPARISON: [facility], CR, XR SHOULDER 2+ VIEWS BILATERAL, 12/26/2020, 14:24. FINDINGS: Image quality: Excellent. Rotator cuff: Full-thickness tearing of the mid and posterior supraspinatus tendon at the humeral insertion site extending to the musculotendinous junction is present. There are a few intact fibers of anterior supraspinatus tendon remaining. There is mild supraspinatus atrophy. There is mild diffuse T2 signal elevation within the infraspinatus tendon at the humeral insertion site extending to the musculotendinous junction, indicating tendinopathy. Superimposed low-grade partial-thickness intrasubstance tearing of the anterior, mid, and posterior infraspinatus tendon, at the humeral insertion site, extending to the musculotendinous junction. Teres minor tendons are intact. There is diffuse low-grade partial-thickness articular surface tearing of the mid and inferior aspect of the subscapularis tendon at the humeral insertion site. Bones and bursae: No bone marrow contusions or fractures. Multiple subchondral cysts within the glenoid. Periarticular osteophyte formation at the glenohumeral joint. Status post resection at the acromioclavicular joint. The acromion demonstrates conventional anatomy, without an os acromiale. No pathologic subacromial-subdeltoid or subcoracoid bursal fluid is present. Capsule and soft tissues: Moderate glenohumeral joint effusion. Multiple small intra-articular loose bodies measuring less than 5 mm diameter. Labrum demonstrates diffuse degenerative tearing The long head of the biceps tendon demonstrates normal location and high-grade tearing The rotator interval appears normal, without fibrosis. The coracohumeral ligament is normal in thickness. IMPRESSION: 1. Full-thickness tearing of a large portion of the supraspinatus tendon, which demonstrates mild atrophy. 2. Infraspinatus tendinopathy with superimposed low-grade partial-thickness tearing. 3. Low-grade partial-thickness articular surface tearing of the subscapularis tendon. 4. Biceps tendon tear. 5. Postsurgical sequelae. 6. 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 Glenohumeral joint effusion is present with small intra-articular loose bodies. Dictated by: Jovany Oleary M.D. on 01/06/2021 at 9:05 Approved by: Jovany Oleary M.D. on 01/06/2021 at 9:08
== END ==
PROVIDERS: PCP Family Medicine; Referring Provider Orthopaedic Surgery; Visit Provider Orthopaedic Surgery
DX: M25.511 Pain in right shoulder (principal); M75.121 Complete rotator cuff tear or rupture of right shoulder, not specified as traumatic; S46.211A Strain of muscle, fascia and tendon of other parts of biceps, right arm, initial encounter; M19.011 Primary osteoarthritis, right shoulder
CPT/HCPCS: 73221

== ENCOUNTER → 2021-04-23 17:32 | Outpatient (CLI) | payer OTHER, SELFPAY ==
--- NOTE | 2021-04-23 | DI.MRI.S_ITS ---
PROCEDURE: MR SHOULDER LT WO CON INDICATIONS: Presence of right artificial shoulder joint TECHNIQUE: Noncontrast oblique coronal T2 fast spin echo with fat saturation, oblique sagittal T1 spin echo and T2 fast spin echo with fat saturation, axial T1 spin echo and T2 fast spin echo with fat saturation through the shoulder. COMPARISON: [facility], CR, XR SHOULDER 2+ VIEWS BILATERAL, 12/26/2020, 14:24. [facility], CR, XR SHOULDER LT MIN 2V, 10/17/2020, 12:06. [facility], MR, MR SHOULDER RT WO CON, 01/04/2021, 8:37. FINDINGS: Image quality: There is motion artifact slightly limiting evaluation. Rotator cuff: There is severe bursal sided partial-thickness tearing in the distal supraspinatus at its insertion. The tear measures approximately 1.2 cm in anteroposterior dimension and involves the anterior fibers of the infraspinatus. A small full-thickness component cannot be excluded. There is mild retraction of the torn bursal sided fibers by approximately 0.5 cm. The remainder of the infraspinatus demonstrates tendinopathy but appears intact. There is mild tendinopathy in the subscapularis with mild partial thickness tearing distally at its insertion. The teres minor appears intact. Sagittal images demonstrate no fatty muscle atrophy. Bones and bursae: No bone marrow contusions or fractures. There are postsurgical changes redemonstrated status post acromioplasty and distal resection of the clavicle. A moderate amount of fluid is present in the subacromial/subdeltoid bursa. There is severe glenohumeral joint degeneration with severe cartilage loss, subchondral cystic changes and subchondral edema, and osteophytosis. There is also mild superior migration of the humeral head relative the the glenoid. There is a minimal glenohumeral joint effusion. Capsule and soft tissues: There is degenerative signal within the superior, anterior inferior, and inferior labrum. The long head of the biceps tendon demonstrates demonstrates slight medial subluxation secondary to partial tearing of the subscapularis. There is segmental tendinopathy and mild longitudinal partial tearing of the biceps tendon proximally. There is mild edema posterior to the glenoid with clustered cysts suggestive of ganglion cysts. IMPRESSION: 1. Severe bursal sided partial-thickness tearing in the distal supraspinatus at its insertion as described with a small full-thickness communication not excluded. There is also associated mild partial tearing within the anterior fibers of the infraspinatus. Mild partial thickness tearing in the distal subscapularis demonstrated at its insertion. No fatty muscle atrophy of the rotator cuff. 2. Severe glenohumeral joint degeneration. 3. Postsurgical changes status post prior acromioplasty and distal clavicular resection redemonstrated. A moderate amount of fluid is present in the subacromial/subdeltoid bursa. 4. Degenerative signal within the superior, anterior inferior, and inferior labrum. 5. Slight medial subluxation of the long head of the biceps tendon secondary to partial tearing of the subscapularis with mild segmental tendinopathy and tearing proximally. 6. Periarticular edema posterior to the glenoid with cystic changes suggestive of ganglion cysts. Dictated by: Alexandr Loza M.D. on 04/24/2021 at 10:14 Approved by: Alexandr Loza M.D. on 04/24/2021 at 10:41
== END ==
PROVIDERS: PCP Family Medicine; Referring Provider Orthopaedic Surgery; Visit Provider Orthopaedic Surgery
DX: M75.112 Incomplete rotator cuff tear or rupture of left shoulder, not specified as traumatic (principal); M19.012 Primary osteoarthritis, left shoulder; Z96.611 Presence of right artificial shoulder joint
CPT/HCPCS: 73221

== ENCOUNTER → 2021-06-02 10:19 | Outpatient (CLI) | payer OTHER, SELFPAY ==
[2021-06-02 13:51] LABS: COVID19 -Nasal RAPID Negative (Negative)
== END ==
PROVIDERS: PCP Family Medicine; Visit Provider Physician Assistant
DX: Z20.822 Contact with and (suspected) exposure to COVID-19 (principal); Z01.812 Encounter for preprocedural laboratory examination
CPT/HCPCS: 87635; C9803

== ENCOUNTER 2021-06-04 08:29 | Day surgery (SDC) | payer OTHER, SELFPAY ==
--- NOTE | 2021-06-03 19:03 | PM.PREOP ---
Pre-operative Note COVID-19 COVID-19 status: Negative Interval Note History & Physical reviewed/Exam performed by Physician: Yes Changes to H&P: No
--- NOTE | 2021-06-03 19:04 | PM.OP.1 ---
Operative Date/Time/Diagnoses Date of procedure: 06/04/21 Time of procedure: 09:45 Procedure & Clinicians Procedure: Preoperative diagnoses: 1. Right significant nuclear sclerotic and cortical cataract. 2. Hypertension 3. Recent shoulder surgery 4. Desire for an elective astigmatism correction and also a multifocal intra-ocular lens implant to reduce her dependency on glasses. Postoperative diagnoses: 1. Cataract removed by phacoemulsification with placement of a multifocal toric posterior chamber intraocular lens. Procedure: Phacoemulsification with posterior chamber intraocular lens implant Surgeon: Martha Aguila MD Complications: None Specimen: None Implant: TFAT50+21.5 [place] 006 Blood loss: None Anesthesia: Retrobulbar with monitored standby Description of procedure: Patient presents with a complaint of decreased vision due to cataract which is affecting activities of daily living at distance and near. She has astigmatism as well as a desire for more independence of glasses especially reading and desires a Panoptix toric multifocal intraocular lens. 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 She understands the extra risk of surgery during the COVID-19 epidemic and wishes to proceed. She has tested COVID 19 virus negative within 72 hours of the procedure. The patient was taken to the operating room and indelible ink gay were placed at the 90 and 180 degree meridian. She was then placed on the operating table and given IV sedation. A retrobulbar block consisting of 6 cc of 2% xylocaine without epinephrine mixed half and half with 0.5% Marcaine with 1 cc of hyaluronidase added is placed between the medial and lateral 1/3 of the inferior orbital rim. The eye is manually massaged for 30 sec, prepped using Betadine solution, and draped in the usual sterile fashion. Temporal approach was made, a 1 mm side-port incision was made 90? from the proposed clear corneal incision position. Phenylephrine 1.5% mixed with 1% xylocaine 0.2 cc was placed into the anterior chamber. Endocoat followed by Shahram was then placed. A 2.6 mm clear incision with a 2.6 mm blade was placed. A 360 degree capsulorrhexis style capsulotomy was then performed with a cystitome needle on a Healon. Hydrodelineation and hydrodissection were performed. The phacoemulsification unit is introduced, and sculpting notice used to groove the central lens. It is then removed in chopping mode. Epi nucleus is removed with epinuclear mode and irrigation aspiration was used to remove the peripheral cortex. The posterior capsule is polished. The intraocular lens is selected, inspected, power confirmed, and placed in the posterior chamber and placed at the desired meridian of 006 degrees. The wound was stromally hydrated and tested for leaks, there was none and it was left sutureless. Vigamox 0.1 cc was placed into the anterior chamber. Kenalog 0.2 cc was placed in the superior subconjunctival space. A drop of antibiotic and was placed and the eye was patched and shielded. The patient was stable and returned to the recovery room in excellent condition. Dictated by: Martha Aguila MD Copy to: [facility] Same procedure as scheduled: Yes
[2021-06-04] MEDS: PROPARACAINE 0.5% OPHTH SOL 2 DROPS EYE-OP (08:53)
[2021-06-04] MEDS: CATARACT EYE COMPOUND (10 DROPS/SYRINGE) 3 DROPS EYE-OP (08:54)
[2021-06-04 08:56] VITALS: BP 148/82; PULSE 72; RESP 18; TEMP 36.6; O2SAT 98; BMI 32.4
[2021-06-04] MEDS: LIDOCAINE 2% 4 ML, BUPIVACAINE 0.5% (PF) 4 ML, HYALURONIDASE 150 UNIT INJ (10:16)
[2021-06-04] MEDS: BALANCED SALT IRRIG SOLN NO.2 500 ML, EPINEPHrine 1 MG IRR (10:17)
[2021-06-04] MEDS: PHENYLEPHRINE/LIDOCAINE VIAL (OR) 0.2 ML EYE-OP (10:18)
[2021-06-04] MEDS: HYALURONATE SODIUM 30 MG-10 MG/ML SYRINGES 1 BOX INTRAOCULA (10:18)
[2021-06-04] MEDS: MOXIFLOXACIN INJ 4 MG/0.8 ML VIAL 0.5 MG EYE-OP (10:18)
[2021-06-04] MEDS: TRIAMCINOLONE 50 MG/5 ML VIAL INJ (10:19)
[2021-06-04] MEDS: ERYTHROMYCIN OPHTH 1 GM OINT 1 APPLIC EYE-RIGHT (10:20)
[2021-06-04 10:40] VITALS: BP 132/66; PULSE 68; RESP 18; TEMP 36.2; O2SAT 98
== END 2021-06-04 10:55 | disposition home or self-care (01) ==
LOC: OR 08:32
PROVIDERS: PCP Family Medicine; Referring Provider Ophthalmology; Visit Provider Ophthalmology
PROC: (CPT 66984; principal; 2021-06-04 09:45)
DX: H25.811 Combined forms of age-related cataract, right eye (principal); I10 Essential (primary) hypertension; H52.201 Unspecified astigmatism, right eye
CPT/HCPCS: 66984; J0171; J2704; J3301; J3470; V2788

== ENCOUNTER → 2021-08-11 13:40 | Outpatient (CLI) | payer OTHER, SELFPAY ==
[2021-08-11 16:27] LABS: COVID19 -Nasal RAPID Negative (Negative)
== END ==
PROVIDERS: PCP Family Medicine; Visit Provider Physician Assistant
DX: Z20.822 Contact with and (suspected) exposure to COVID-19 (principal); Z01.812 Encounter for preprocedural laboratory examination
CPT/HCPCS: 87635; C9803

== ENCOUNTER 2021-08-13 12:17 | Day surgery (SDC) | payer OTHER, SELFPAY ==
--- NOTE | 2021-08-12 17:43 | PM.PREOP ---
Pre-operative Note COVID-19 COVID-19 status: Negative Interval Note History & Physical reviewed/Exam performed by Physician: Yes Changes to H&P: No
--- NOTE | 2021-08-12 17:44 | PM.OP.1 ---
Operative Date/Time/Diagnoses Date of procedure: 08/13/21 Time of procedure: 12:15 Procedure & Clinicians Procedure: Preoperative diagnoses: 1. Significant left cortical and Nuclear sclerotic cataract 2. Astigmatism which is to be corrected with a toric intraocular lens implant. 3. Desire for a multifocal implant to correct distance in all areas to be is glasses independent as possible. 4. Recent left shoulder surgery Postoperative diagnoses: 1. Cataract removal with phacoemulsification with toric posterior chamber intraocular lens implant placed. Procedure: Phacoemulsification with posterior chamber toric intraocular lens implant. Surgeon: Martha Aguila MD Complications: None Specimen: None Implant: TFAT50+22.5 [place] 174 Blood loss: None Anesthesia: Retrobulbar with monitored standby Description of procedure: Patient presents with a complaint of decreased vision due to cataract which is affecting activities of daily living especially night driving. The patient wants surgery to improve vision and astigmatism. The patient understands the extra risk of surgery during the COVID-19 epidemic and wishes to proceed. The patient has tested negative for active virus within 72 hours of the procedure. The patient was taken to the operating room and proparacaine drops placed. Indelible ink gay were placed at the 90 and 180 degree meridian. The patient was placed on the operating room table and given IV sedation. A retrobulbar block insert consisting of 6 cc of 2% xylocaine without epinephrine mixed half and half with 0.5% Marcaine with 1 cc of hyaluronidase added is placed between the medial and lateral 1/3 of the inferior orbital rim. The eye is manually massaged for 30 sec, prepped using Betadine solution, and draped in the usual sterile fashion. Temporal approach was made, a 1 mm side-port incision was made 90? from the proposed corneal wound. Phenylephrine 1.5% mixed with 1% xylocaine 0.2 cc was placed into the anterior chamber. Endocoat followed by Healon was then placed. A 2.6 mm clear incision with a 2.6 mm blade was placed at the 170 degree meridian. A 360 degree capsulorrhexis style capsulotomy was then performed with a cystitome needle on a Healon. Hydrodelineation and hydrodissection were performed. The phacoemulsification unit is introduced, and sculpting used to groove the central lens. It is then removed in chopping mode. Epi nucleus is removed with epinuclear mode and irrigation aspiration was used to remove the peripheral cortex. The posterior capsule is polished. The intraocular lens is selected, inspected, power confirmed, and placed in the posterior chamber at the desired meridian. The pupil was not constricted. The wound was stromally hydrated and tested for leaks, there was none and it was left sutureless. Intracameral moxifloxacin 0.1 cc was placed into the anterior chamber. Kenalog 0.2 cc was placed in the superior subconjunctival space. A drop of antibiotic and was placed and the eye was patched and shielded. The patient was stable and returned to the recovery room in excellent condition. Dictated by: Martha Aguila MD Copy to: [facility] Same procedure as scheduled: Yes
--- NOTE | 2021-08-13 12:18 | SUR.PREOP ---
1218-patient not arrived. message left on answering machine to verify if coming for scheduled surgery.
[2021-08-13] MEDS: CATARACT EYE COMPOUND (10 DROPS/SYRINGE) 3 DROPS EYE-OP (12:44)
[2021-08-13] MEDS: PROPARACAINE 0.5% OPHTH SOL 2 DROPS EYE-OP ×2 (12:45→13:46)
[2021-08-13 13:00] VITALS: BP 129/74; PULSE 72; RESP 16; TEMP 36.9; O2SAT 99; BMI 31.8
[2021-08-13] MEDS: LIDOCAINE 2% 4 ML, BUPIVACAINE 0.5% (PF) 4 ML, HYALURONIDASE 150 UNIT INJ (13:54)
[2021-08-13] MEDS: ERYTHROMYCIN OPHTH 1 GM OINT 1 APPLIC EYE-LEFT (14:02)
[2021-08-13] MEDS: HYALURONATE SODIUM 30 MG-10 MG/ML SYRINGES 1 BOX INTRAOCULA (14:02)
[2021-08-13] MEDS: MOXIFLOXACIN INJ 4 MG/0.8 ML VIAL 0.5 MG EYE-OP (14:03)
[2021-08-13] MEDS: BALANCED SALT IRRIG SOLN NO.2 500 ML, EPINEPHrine 1 MG IRR (14:06)
[2021-08-13] MEDS: TRIAMCINOLONE 50 MG/5 ML VIAL INJ (14:06)
[2021-08-13] MEDS: PHENYLEPHRINE/LIDOCAINE VIAL (OR) 0.2 ML EYE-OP (14:06)
[2021-08-13 14:45] VITALS: BP 142/74; PULSE 64; RESP 18; TEMP 36.8; O2SAT 100
[2021-08-13 14:57] VITALS: BP 172/84; PULSE 68; RESP 15; TEMP 36.3; O2SAT 99
--- NOTE | 2021-08-13 15:04 | SUR.PHASEII ---
1503-Patient aa&ox4. vss. dressed with assistance. iv out. gait steady. shoulder immobilizer left arm reapplied. dressing/shield to left eye cdi. home instructions completed-given to patient in envelope with eye card/paperwork. Questions answered. no pain and toleration po fluids. meets d/c criteria.ride here. Discharged to home with all belongings/paperwork by w/c to friends car.
== END 2021-08-13 15:03 | disposition home or self-care (01) ==
PROVIDERS: PCP Family Medicine; Referring Provider Ophthalmology; Visit Provider Ophthalmology
PROC: (CPT 66984; principal; 2021-08-13 13:15)
DX: H25.812 Combined forms of age-related cataract, left eye (principal); H52.202 Unspecified astigmatism, left eye
CPT/HCPCS: 66984; J0171; J2704; J3301; J3470; V2788

== ENCOUNTER → 2022-05-18 10:26 | Outpatient (CLI) | payer OTHER, MEDICAID, SELFPAY ==
[2022-05-18 11:53] LABS: COVID19 -Nasal RAPID Negative (Negative)
== END ==
PROVIDERS: PCP Family Medicine; Visit Provider Surgery
DX: Z20.822 Contact with and (suspected) exposure to COVID-19 (principal); Z01.812 Encounter for preprocedural laboratory examination
CPT/HCPCS: 87635; C9803

== ENCOUNTER 2022-05-19 10:29 | Day surgery (SDC) | payer OTHER, MEDICAID, SELFPAY ==
[2022-05-19 10:44] VITALS: BMI 31.7
[2022-05-19 10:54] VITALS: BP 127/67; PULSE 70; RESP 16; TEMP 36.4; O2SAT 99
[2022-05-19] MEDS: LACTATED RINGERS 1,000 ML 200 ML IV (11:16)
--- NOTE | 2022-05-19 11:24 | P.HP_ITS ---
History of Present Illness History of Present Illness Date Patient Seen: 05/19/22 Time Patient Seen: 11:24 Chief complaint: SDC Narrative: The patient presents for colorectal screening. Colonoscopy 10 years ago normal.. No personal or family history of colon cancer. On further history denies any recent new gastrointestinal symptoms. She has irritable bowel syndrome and alternating bowel habits. No blood per rectum no unintentional weight loss no new abdominal pain.. Patient History Medical History Benign positional vertigo Cervical neck pain with evidence of disc disease Cervical radiculopathy at C7 Cervical radiculopathy at C8 Cervical stenosis of spinal canal DJD of both shoulders Fibromyalgia Healthy adult Rotator cuff tear Surgical History Hx of shoulder surgery (~07/18/21) S/P shoulder surgery (~02/20/21) Family & Social History Social History: household members none Tobacco & Substance use: Smoking Status Never smoker alcohol intake current alcohol intake frequency 0-2 drinks per day Substance Use Type does not use Meds Home Medications and Allergies Home Medications Medication Instructions Recorded Confirmed Type Fish Oil 1 cap PO BID 07/20/18 05/19/22 History Mature Vit 1 tab PO DAILY 07/20/18 05/19/22 History amitriptyline 25 mg tablet 2 tab PO BEDTIME 07/20/18 05/19/22 History aspirin 81 mg tablet,delayed 81 mg PO DAILY 07/20/18 05/19/22 History release calcium citrate 1 tab PO DAILY 07/20/18 06/04/21 History glucosam 750 mg-chondroi 100 1 tab PO BID 07/20/18 05/19/22 History mg-hyalur 1.65 mg-CF borate 108 mg tablet ([facility]) lisinopril 20 1 tab PO DAILY 07/20/18 05/19/22 History mg-hydrochlorothiazide 12.5 mg tablet magnesium 80 mg PO DAILY 07/20/18 05/19/22 History meclizine 25 mg tablet 1 - 2 tab PO PRN PRN Dizziness 07/20/18 05/19/22 History naproxen 500 mg tablet 1 tab PO BID 07/20/18 05/19/22 History ondansetron 4 mg disintegrating 1 - 2 tab PO PRN PRN Nausea 07/20/18 05/19/22 History tablet simvastatin 40 mg tablet 1 tab PO BEDTIME 07/20/18 05/19/22 History gabapentin 600 mg tablet 600 mg PO TID 08/13/21 05/19/22 History Allergies Allergy/AdvReac Type Severity Reaction Status Date / Time amoxicillin Allergy Severe Rash Verified 05/19/22 10:38 ciprofloxacin [From Cipro] Allergy Severe Rash Verified 05/19/22 10:38 Sulfa (Sulfonamide AdvReac Severe Headache Verified 05/19/22 10:38 Antibiotics) Exam Vital Signs (past 8 hours): - 05/19/22 10:54 Temperature 97.5 F L Pulse Rate 70 Respiratory Rate 16 Blood Pressure 127/67 Pulse Oximetry 99 Oxygen Delivery Method Room Air Oxygen Delivery Method Room Air Narrative Exam Narrative: General adult woman alert oriented no acute distress Chest nonlabored respiration Abdomen soft nontender nondistended Assessment & Plan Assessment & Plan narrative: The patient requires colorectal screening and colonoscopy is recommended. Technical details were discussed. Risks, benefits, alternatives explained. Risks including but not limited to myocardial infarction, aspiration, bleeding, pain, missed lesion, incomplete examination, need for further radiographic studies, colonic perforation, and need for major abdominal surgery were discussed. All questions were answered to their satisfaction, and they are in agreement with this plan. Time Spent With Patient Critical Care time: I spent a total of [] minutes of critical care time on this patient's care today; this time is exclusive of procedural time.
--- NOTE | 2022-05-19 11:26 | P.OP.COLON_ITS ---
Operative Date/Time/Diagnoses Date of procedure: 05/19/22 Time of procedure: 11:26 Pre-op diagnosis: Screening Post-op diagnosis: same Procedure & Clinicians Study performed: Colonoscopy Same procedure as scheduled: Yes Indications: Screening Surgeon: Luis A Hanson Procedure Notes Procedure in detail: Medications: Conscious sedation using 5mg IV midazolam and 150mcg IV of fentanyl The history and physical was performed/updated and the patient is ASA class is 2. The procedure was discussed in detail with the patient. Potential risks complications including infection, bleeding, missed diagnosis, perforation, need for surgery, and were explained. Their questions were answered and informed consent was obtained. Patient was brought to the procedure room and placed standard monitoring equipment. The patient's vital signs were monitored continuously throughout the entire procedure. Prior to starting time-out was performed. The patient was placed in the left lateral recumbent position. Procedural sedation was adminis tered. Examination began with a thorough inspection of the perianal area there was no evidence of fissures, fistulae, external hemorrhoids or cutaneous malignancy. The colonoscopy scope was then placed into the anal canal and was advanced to the cecum, which was identified by the ileocecal valve and the confluence of the taenia. The scope was then slowly withdrawn examining colon thoroughly in all directions, irrigating it of any residual stool. FINDINGS 1. Normal healthy colon. 2. No masses or polyps 3. Diverticulosis 4. Tortuous colon The patient tolerated the procedure well. They will be discharged once criteria are met. The prep was of good/excellent quality. The withdrawl time was 7 minutes. The sedation time was 40 minutes. Specimen(s): none sent Complications: none Impression: Normal colonoscopy Post-procedure Recommendations: High fiber diet Plan for aftercare: No further colonoscopy necessary Disposition: same day surgery
[2022-05-19] MEDS: MIDAZOLAM 5 MG/5 ML VIAL IV (11:30)
[2022-05-19] MEDS: fentaNYL 100 MCG/2 ML INJ 150 MCG IV (11:30)
[2022-05-19 12:15] VITALS: BP 129/67; PULSE 68; RESP 12; TEMP 36; O2SAT 95
[2022-05-19 12:20] VITALS: BP 124/62; PULSE 65; RESP 13; O2SAT 95
[2022-05-19 12:25] VITALS: BP 127/64; PULSE 71; RESP 19; O2SAT 95
[2022-05-19 12:30] VITALS: BP 133/66; PULSE 69; RESP 16; O2SAT 97
[2022-05-19 12:31] VITALS: BP 129/66; PULSE 66; RESP 19; O2SAT 97
== END 2022-05-19 12:48 | disposition home or self-care (01) ==
PROVIDERS: PCP Family Medicine; Referring Provider Surgery; Visit Provider Surgery
PROC: 0DJD8ZZ Inspection of Lower Intestinal Tract, Via Natural or Artificial Opening Endoscopic (ICD-10-PCS; CPT 45378; principal; 2022-05-19 11:30)
DX: Z12.11 Encounter for screening for malignant neoplasm of colon (principal); K57.30 Diverticulosis of large intestine without perforation or abscess without bleeding
CPT/HCPCS: 45378; 99152; 99153; G0121; J2250; J3010

== ENCOUNTER → 2022-08-10 16:01 | Outpatient (CLI) | payer OTHER, MEDICAID, SELFPAY ==
--- NOTE | 2022-08-10 16:01 | DI.MG.S_ITS ---
BILATERAL DIGITAL SCREENING MAMMOGRAM 3D/2D WITH CAD: 08/10/2022 CLINICAL: Routine screening. Family history of breast cancer. Comparison is made to exams dated: 08/24/2020 mammogram, 09/09/2018 mammogram - [facility], and 06/24/2016 mammogram - [facility]. There are scattered areas of fibroglandular density in both breasts (category b / 25%-50% glandular tissue). Current study was also evaluated with a Computer Aided Detection (CAD) system. No significant masses, calcifications, or other findings are seen in either breast. There has been no significant interval change. IMPRESSION: NEGATIVE There is no mammographic evidence of malignancy. A 1 year screening mammogram is recommended. Based on the Tyrer Cuzick model (a risk assessment model) the patient's lifetime risk is 5.7% and her 10 year risk is 5.7%. According to the ACR, ACS, and NCCN guidelines, an annual breast MRI exam along with mammogram is recommended if the patient's lifetime risk is 20% or greater. This exam was interpreted at Station ID: [id number]. NOTE: For mammograms, a report in lay terms will be sent to the patient. Approximately 15% of breast malignancies will not be visualized mammographically. In the management of a palpable breast mass, a negative mammogram must not discourage biopsy of a clinically suspicious lesion. Electronically Signed By: Chandan colindres/evie:08/11/2022 12:41:38 letter sent: Normal Exam ACR BI-RADS Category 1: Negative [id number]
== END ==
PROVIDERS: PCP Family Medicine; Referring Provider Family Medicine; Visit Provider Family Medicine
DX: Z12.31 Encounter for screening mammogram for malignant neoplasm of breast (principal); Z80.3 Family history of malignant neoplasm of breast
CPT/HCPCS: 77063; 77067

== ENCOUNTER → 2022-08-13 15:14 | Outpatient (CLI) | payer OTHER, MEDICAID, SELFPAY ==
--- NOTE | 2022-08-13 15:15 | DI.CT.S_ITS ---
PROCEDURE: CT SHOULDER RIGHT WITHOUT CON INDICATIONS: Primary osteoarthritis, right shoulder TECHNIQUE: Noncontrast 1-1.5 mm thick sections acquired from the acromioclavicular joint to the inferior scapula, with coronal and sagittal reformatting. COMPARISON: None. FINDINGS: Image quality: Excellent. Patient is status post right total shoulder replacement. Surgical hardware appears in good position without evidence for hardware complication. I do not see evidence for periprosthetic fracture. Of note the most superior anchor screw does extend slightly into the posterior soft tissues. There is prior postsurgical change involving the AC joint region. No loculated fluid collections or soft tissue masses are seen. The adjacent soft tissues appear within normal limits. Visualized lung parenchyma is clear. IMPRESSION: 1. Satisfactory appearance of right total shoulder replacement without evidence for periprosthetic lucency or periprosthetic fracture. 2. Of note the most superior surgical screw does extend somewhat into the posterior soft tissues behind the superior glenoid. 3. Postsurgical changes AC joint region. Dictated by: Tayo Call M.D. on 08/13/2022 at 16:28 Approved by: Tayo Call M.D. on 08/13/2022 at 16:35
== END ==
PROVIDERS: PCP Family Medicine; Referring Provider Orthopaedic Surgery; Visit Provider Orthopaedic Surgery
DX: M19.011 Primary osteoarthritis, right shoulder (principal); M19.012 Primary osteoarthritis, left shoulder; Z96.611 Presence of right artificial shoulder joint
CPT/HCPCS: 73200

== ENCOUNTER 2023-08-31 08:55 | Outpatient (CLI) | payer OTHER, MEDICAID, SELFPAY ==
[2023-08-31] VITALS (10 sets, daily range): BP systolic 142–182; BP diastolic 67–88; PULSE 67–79; RESP 12–21; TEMP 36.4; O2SAT 94–99
--- NOTE | 2023-08-31 09:45 | DI.RAD.S_ITS ---
PROCEDURE: PAIN C/T INTERLAMINAR INJECT INDICATIONS: SPINAL STENOSIS COMPARISON: [facility], , PAIN C/T INTERLAMINAR INJECT, 09/12/2020, 7:59. FINDINGS: Fluoroscopic spot filming was performed to verify placement of a spinal needle at the C6-C7 level, as labeled on the films. Appropriate location of the needle tip was confirmed by injection of iodinated contrast. IMPRESSION: No significant intraprocedural abnormality. Dictated by: Bobo Romero M.D. on 08/31/2023 at 12:16 Approved by: Bobo Romero M.D. on 08/31/2023 at 12:17
[2023-08-31] MEDS: MIDAZOLAM 2 MG/2 ML VIAL IV (10:09)
[2023-08-31] MEDS: DEXAMETHASONE 10 MG/ML VIAL 20 MG INJ (10:12)
[2023-08-31] MEDS: iopamidoL 15 ML VIAL 3 ML INJ (10:13)
[2023-08-31] MEDS: BUPIVACAINE 0.25% (PF) VIAL 2 ML INJ (10:13)
[2023-08-31] MEDS: fentaNYL 100 MCG/2 ML INJ 50 MCG IV (10:16)
--- NOTE | 2023-08-31 10:27 | P.PCN_ITS ---
Date/Time/Diagnoses Date of procedure: 08/31/23 Time of procedure: 10:27 Pre-procedure diagnosis: 1. CERVICAL STENOSIS, 2. CERVICAL HNP WITH UPPER EXTREMITY RADICULAR FEATURES Post-procedure diagnosis: same Procedure Notes Procedure: 1. FLUORSCOPICALLY GUIDED CONTRAST CONTROLLED INTERLAMINAR EPIDURAL STEROID INJECTION - C6/7 TL EUGENIA Indications: Jens is referred by Dr. De Guzman for treatment of Cervical HNP with Upper Extremity Paresthesias. Physician: Gregory Palmer Total Fluoroscopy time (seconds): 22 Total sedation minutes: 13 Complications: none Procedure in detail & Post-procedure care: FINDINGS Cervical Stenosis due to disc deterioration and nerve root irritation and nerve root irritation DESCRIPTION OF PROCEDURE Fluoroscopically guided, contrast-controlled C6/7 translaminar epidural steroid injection with conscious sedation. Following review of allergy and review of potential side effects and complications, including, but not necessarily limited to, infection, allergic reaction, local tissue breakdown, temporary as well as permanent nerve injury, stroke, paralysis, and possible , the patient indicated that patient understood and agreed to proceed. An informed consent document was signed by the patient, witnessed by a nurse, and placed in the patient's chart. Additionally, other treatment options including modalities, medications, and physical therapy were reviewed with the patient. After review of previous anaesthesic history and IV conscious sedation the patient was deemed safe to proceed with today?s procedure with IV conscious enrique tion as ASA class II designation. Safety time-out was performed to confirm patient ID, procedure to be performed and site of procedure. IV sedation was accomplished with a combination of 2mg of Versed and 50mcg of Fentanyl administered by the RN after DO order, titrated to patient comfort during the course of the procedure while the patient remained responsive to all verbal commands. In the prone position, following sterile prep and drape of the cervical region, the C6/7 translaminar space was identified fluoroscopically. The skin was anesthetized via a 25-gauge 1.5-inch needle with 1% lidocaine solution. At this point, a 25-gauge, 2.5-inch short bevel spinal needle was atraumatically introduced and advanced under fluoroscopic guidance into epidural space at the C6/7 translaminar space. Depth was confirmed on lateral view. Radiological data, including multiple fluoroscopic views of the cervical spine, reveal a spinal needle at the C6/7 translaminar space. Lateral views then show placement of the needle in the epidural space. Subsequent views show contrast material flowing superiorly and inferiorly in the epidural space. DSA fluoroscopy with live contrast injection, once again, confirmed no vascular or intrathecal uptake. At this point, using loss of resistance technique with saline and air, the epidural space was entered. Following negative aspiration, injection of approximately 1.5 cc of Isovue-200 with live fluoroscopy in the AP view confirmed epidural flow in the epidural space without vascular or intrathecal uptake observed. Subsequently, a test dose of 1 cc of 1% lidocaine solution was injected and patient was observed for two minutes without signs or symptoms of complications, including abdominal pain, shortness of breath, bilateral upper or lower extremity weakness, nausea and vomiting, prior to steroid injection. At this point, 2cc or 20mg of dexamethasone was then injected without incident. The patient tolerated the procedure well without signs or symptoms of complications prior to being transferred to the recovery area for further monitoring, The patient was then transferred to the recovery area where they were observed for an appropriate period of time after the injection. The patient reported a VAS score of 8 prior to the procedure and a post-procedure VAS of 1. POST OP INSTRUCTIONS The patient was provided a Pain Log to continue to record their response to the target-specific procedure prior to follow-up visit with the referring provider. Additionally, specific post-injection care instructions and a contact number to our office were provided if concerns arise regarding possible complications associated with the procedure are suspected.
== END 2023-08-31 10:52 | disposition home or self-care (01) ==
PROVIDERS: PCP Family Medicine; Referring Provider Physical Medicine & Rehabilitation; Visit Provider Physical Medicine & Rehabilitation
DX: M54.12 Radiculopathy, cervical region (principal); M48.02 Spinal stenosis, cervical region
CPT/HCPCS: 62321; 99152; J1100; J2250; J3010; J3490

== ENCOUNTER → 2024-05-04 08:44 | Outpatient (CLI) | payer OTHER, MEDICAID, SELFPAY | LOC: PHYS 08:45 | PROVIDERS: Family Provider Family Medicine; PCP Family Medicine; Referring Provider Physical Medicine & Rehabilitation; Visit Provider Physical Medicine & Rehabilitation | DX: M54.12 Radiculopathy, cervical region (principal) | CPT/HCPCS: 95886; 95913 ==

== ENCOUNTER 2024-07-13 09:00 | Outpatient (CLI) | payer OTHER, MEDICAID, SELFPAY ==
[2024-07-13] VITALS (9 sets, daily range): BP systolic 136–179; BP diastolic 63–84; PULSE 75–82; RESP 12–20; TEMP 35.9; O2SAT 95–99
--- NOTE | 2024-07-13 09:30 | DI.RAD.S_ITS ---
PROCEDURE: PAIN C/T INTERLAMINAR INJECT INDICATIONS: C7/T1 TL EUGENIA COMPARISON: [facility], , PAIN C/T INTERLAMINAR INJECT, 08/31/2023, 11:12. FINDINGS: Fluoroscopic spot filming was performed to verify placement of spinal needles at the C7-T1 level(s), as labeled on the films. Appropriate location(s) of the needle tip(s) was confirmed by injection of iodinated contrast. IMPRESSION: Intraoperative fluoroscopy for epidural spinal injection. Dictated by: Scarlett Danielle M.D. on 07/13/2024 at 23:00 Approved by: Scarlett Danielle M.D. on 07/13/2024 at 23:01
[2024-07-13] MEDS: MIDAZOLAM 2 MG/2 ML VIAL IV (09:38)
[2024-07-13] MEDS: BUPIVACAINE 0.25% (PF) VIAL 2 ML INJ (09:48)
[2024-07-13] MEDS: DEXAMETHASONE 10 MG/ML VIAL 20 MG INJ (09:48)
[2024-07-13] MEDS: iopamidoL 15 ML VIAL 3 ML INJ (09:49)
--- NOTE | 2024-07-13 09:59 | P.PCN_ITS ---
Date/Time/Diagnoses Date of procedure: 07/13/24 Time of procedure: 09:59 Pre-procedure diagnosis: 1. CERVICAL STENOSIS, 2. CERVICAL HNP WITH UPPER EXTREMITY RADICULAR FEATURES Procedure Notes Procedure: FLUORSCOPICALLY GUIDED CONTRAST CONTROLLED INTERLAMINAR EPIDURAL STEROID INJECTION - C7/T1 TL EUGENIA Indications: Jens is referred by Dr. De Guzman for treatment of Cervical Stenosis. Physician: Gregory Palmer Total Fluoroscopy time (seconds): 31 Total sedation minutes: 18 Complications: none Procedure in detail & Post-procedure care: DESCRIPTION OF PROCEDURE Following review of allergy and review of potential side effects and complications, including, but not necessarily limited to, infection, allergic reaction, local tissue breakdown, temporary as well as permanent nerve injury, stroke, paralysis, and possible , the patient indicated that patient understood and agreed to proceed. An informed consent document was signed by the patient, witnessed by a nurse, and placed in the patient's chart. Additionally, other treatment options including modalities, medications, and physical therapy were reviewed with the patient. After review of previous anaesthesic history and IV conscious sedation the patient was deemed safe to proceed with todays procedure with IV conscious sedation as ASA class II designation. Safety time-out was performed to confirm patient ID, procedure to be performed and site of procedure. IV sedation was accomplished with a combination of 2mg of Versed administered by the RN after DO order, titrated to patient comfort during the course of the procedure while the patient remained responsive to all verbal commands. In the prone position, following sterile prep and drape of the cervical region, the C7/T1 translaminar space was identified fluoroscopically. The skin was anesthetized via a 25-gauge 1.5-inch needle with 1% lidocaine solution. At this point, a 25-gauge, 2.5-inch short bevel spinal needle was atraumatically introduced and advanced under fluoroscopic guidance into epidural space at the C7/T1 translaminar space. Depth was confirmed on lateral view. Radiological data, including multiple fluoroscopic views of the cervical spine, reveal a spinal needle at the C7/T1 translaminar space. Lateral views then show placement of the needle in the epidural space. Subsequent views show contrast material flowing superiorly and inferiorly in the epidural space. DSA fluoro scopy with live contrast injection, once again, confirmed no vascular or intrathecal uptake. At this point, using loss of resistance technique with saline and air, the epidural space was entered. Following negative aspiration, injection of approximately 1.5 cc of Isovue-200 with live fluoroscopy in the AP view confirmed epidural flow in the epidural space without vascular or intrathecal uptake observed. Subsequently, a test dose of 1 cc of 1% lidocaine solution was injected and patient was observed for two minutes without signs or symptoms of complications, including abdominal pain, shortness of breath, bilateral upper or lower extremity weakness, nausea and vomiting, prior to steroid injection. At this point, 2cc or 20mg of dexamethasone was then injected without incident. The patient tolerated the procedure well without signs or symptoms of complications prior to transfer to the recovery area for further monitoring The patient was then transferred to the recovery area where they were observed for an appropriate period of time after the injection. The patient reported a VAS score of 6 prior to the procedure and a post-procedure VAS of 0 POST OP INSTRUCTIONS The patient was provided a Pain Log to continue to record the patient's response to the target-specific procedure prior to the patient's follow-up visit with the referring physician. Additionally, specific post-injection care instructions and a contact number to our office were provided if concerns arise regarding possible complications associated with the procedure are suspected.
== END 2024-07-13 10:16 | disposition home or self-care (01) ==
PROVIDERS: Family Provider Family Medicine; PCP Family Medicine; Referring Provider Physical Medicine & Rehabilitation; Visit Provider Physical Medicine & Rehabilitation
DX: M48.02 Spinal stenosis, cervical region (principal); M50.13 Cervical disc disorder with radiculopathy, cervicothoracic region
CPT/HCPCS: 62321; 99152; J1100; J2250; J3490

== ENCOUNTER → 2024-09-14 09:44 | Outpatient (CLI) | payer OTHER, MEDICAID, SELFPAY ==
--- NOTE | 2024-09-14 09:45 | DI.CT.S_ITS ---
PROCEDURE: CT CERVICAL SPINE WO CON INDICATIONS: SPONDYLOSIS CERVICAL REGION TECHNIQUE: Noncontrast 3 mm thick sections acquired from the skull base to the T4 level. Sagittal and coronal reformats were then constructed. For radiation dose reduction, the following was used: automated exposure control, adjustment of mA and/or kV according to patient size. COMPARISON: [facility], CT, CT CERVICAL SPINE WO CON, 08/27/2020, 11:51. FINDINGS: Image quality: Excellent. Bones: There is subchondral cystic change throughout the dens with some pannus formation surrounding the dens. Degenerative changes are noted lateral masses C1 and C2. Disc space narrowing at C3-C4 with endplate osteophyte changes as well as at C5-C6, C6-C7 and C7-T1. Facet degenerative changes C5-C6 C6-C7 and C7-T1 bilaterally left side worse than right. No acute fracture. Facet joints align normally bilaterally. No areas of significant osseous central spinal stenosis except at C5-C6 and C6-C7 where disc osteophyte complex does efface the ventral thecal sac resulting in osseous central spinal stenosis at these levels. Some osseous neural foraminal stenosis as well at C4-C5, C5-C6 and C6-C7 left side greater than right. Soft tissues: Prevertebral soft tissues are normal in thickness. No paravertebral hematomas. No apical pneumothoraces. 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 Dictated by: Brien Navarrete M.D. on 09/14/2024 at 11:44 Approved by: Brien Navarrete M.D. on 09/14/2024 at 11:49
== END ==
PROVIDERS: Family Provider Family Medicine; PCP Family Medicine; Referring Provider Neurological Surgery; Visit Provider Neurological Surgery
DX: M47.22 Other spondylosis with radiculopathy, cervical region (principal); M47.23 Other spondylosis with radiculopathy, cervicothoracic region; M48.02 Spinal stenosis, cervical region
CPT/HCPCS: 72125

== ENCOUNTER → 2025-07-12 10:29 | Outpatient (CLI) | payer OTHER, MEDICAID, SELFPAY ==
--- NOTE | 2025-07-12 10:31 | DI.RAD.S_ITS ---
PROCEDURE: XR DEXA AXIAL SKELETON INDICATIONS: spinal stenosis COMPARISON: None. FINDINGS: Lumbar Spine: Bone mineral density is 0.992 g/cm2, T score -0.2, normal. Left Femoral Neck: Bone mineral density is 0.791 g/cm2, T score -0.5. Left Hip: Bone mineral density 0.938 g/cm2, T score 0.0, normal bone mineralization. Fracture Risk Calculation (when applicable): 10-year fracture risk of a major osteoporotic fracture 15 percent and of a hip fracture 6.2 percent. (T score greater or equal to -1.0 to: NORMAL) (T score from -1.1 to -2.4: OSTEOPENIA) (T score less than or equal to -2.5: OSTEOPOROSIS) IMPRESSION: Normal bone mineralization Follow-up guidelines as follows: Osteoporosis: Consider a repeat DEXA and Vertebral Fracture Assessment (VFA) exam in 2 years or sooner if medically necessary, to reassess this patient's status. Osteopenia: Consider a repeat DEXA in 2-3 years to reassess this patient's status, or if there is a new clinical indication. Normal: Consider a repeat DEXA in 5 years or sooner, or if there is a new clinical indication. All treatment decisions require clinical judgment and consideration of individual patient factors, including patient preferences, comorbidities, previous drug use, risk factors not captured in the FRAX model (e.g., frailty, falls, vitamin D deficiency, increased bone turnover, interval significant decline in bone density ) and possible under- or over-estimation of fracture risk by FRAX. In addition, the NOF Guide recommends that FDA-approved medical therapies be considered in postmenopausal women and men age >= 50 years with a: * Hip or vertebral (clinical or morphometric) fracture * T-score of <=-2.5 at the spine or hip * Ten-year fracture probability by FRAX of >= 3% for hip fracture or >=20% for major osteoporotic fracture. Approved by: Hayes Li M.D. on 07/13/2025 at 17:33
== END ==
PROVIDERS: Family Provider Family Medicine; PCP Family Medicine; Referring Provider Family Medicine; Visit Provider Family Medicine
DX: Z78.0 Asymptomatic menopausal state (principal)
CPT/HCPCS: 77080